=== PATIENT | female | born 1995 | race Caucasian/White ===

== ENCOUNTER 2024-09-27 15:18 | Outpatient (CLI) | payer OTHER, SELFPAY ==
--- NOTE | ~2024-09-27 | CT_ITS ---
EXAMINATION: CT elbow RT wo con DATE: 09/27/2024 15:36 INDICATION: Closed fracture of the right elbow with routine healing TECHNIQUE: High resolution computed tomography (CT) of the right elbow was performed without intraven ous contrast. Additional sagittal and coronal reconstructions were performed. Automated exposure cont rol and iterative reconstruction technique were employed. The dose-length product was 134.61 mGy-cm. COMPARISON: None FINDINGS: Radiocapitellar hemiarthroplasty with minimal lucency surrounding the stem of the radial head implant which remains within normal limits. No fracture identified. There is there some is heterotopic ossif ication thin irregular lucency extending between the regions of nearly bridging heterotopic ossificat ion between the proximal radius and ulna at the level of the radial neck distal to the proximal radio ulnar joint space. There is additional heterotopic ossification along the nonarticular medial margin of the medial femoral condyle at the region of the ulnar collateral ligament complex suggesting seque la of chronic sprain. There are lucent likely suture anchors at both the medial and lateral femoral c ondyles likely for repair of the radial and ulnar collateral ligament tears. 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 No elbow joint effusion. IMPRESSION: 1. Postoperative change including the radiocapitellar hemiarthroplasty with radial head implant and l ucent likely suture anchor tracks at the medial and lateral humeral condyle suggesting prior radial a nd ulnar collateral ligament repairs. Correlate with surgical history. 2. 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 Reviewed, dictated and finalized at location A. IMPRESSION: 1. Postoperative change including the radiocapitellar hemiarthroplasty with rad ial head implant and lucent likely suture anchor tracks at the medial and later al humeral condyle suggesting prior radial and ulnar collateral ligament repair s. Correlate with surgical history. 2. Nearly bridging heterotopic ossification extending between the proximal radi us and ulna at the level of the radial neck which likely contributes to the rep orted inability to rotate the arm.
== END 2024-09-27 15:19 | disposition home or self-care (01) ==
LOC: MICIMG 15:19
DX: S42.401A Unspecified fracture of lower end of right humerus, initial encounter for closed fracture (principal); Z96.621 Presence of right artificial elbow joint
CPT/HCPCS: 73200

== ENCOUNTER 2024-10-06 08:01 | Outpatient (CLI) | payer OTHER, SELFPAY ==
--- NOTE | ~2024-10-06 | MR_ITS ---
EXAMINATION: MR elbow RT wo con DATE: 10/06/2024 10:07 INDICATION: Closed fracture of right elbow with routine healing. TECHNIQUE: Magnetic resonance imaging (MRI) of the right elbow was performed without intravenous cont rast. COMPARISON: Right elbow CT 09/27/2024 FINDINGS: Osseous/other: There is a prosthesis of distal radius. Artifact obscures surrounding structures. Alignment is normal . No acute fracture. There is moderate osteoarthritis of ulnohumeral joint. There is heterotopic ossi fication distal to medial humeral epicondyle. Tendons: The biceps tendon and brachialis tendon are normal. The common extensor tendon is obscured by artifac t. The common flexor tendon is normal. Ligaments: There is degeneration of ulnar collateral ligament without well-defined tear. Cubital tunnel: The ulnar nerve is normal. Fluid: There is no elbow joint effusion. IMPRESSION: 1. Prosthesis of distal radius. 2. Moderate osteoarthritis of ulnohumeral joint. Reviewed, dictated and finalized at location A. CAL CENTER DIRECTOR
== END 2024-10-06 08:02 | disposition home or self-care (01) ==
DX: S52.501D Unspecified fracture of the lower end of right radius, subsequent encounter for closed fracture with routine healing (principal); M19.021 Primary osteoarthritis, right elbow; Z96.698 Presence of other orthopedic joint implants; X58.XXXD Exposure to other specified factors, subsequent encounter
CPT/HCPCS: 73221

== ENCOUNTER 2025-10-13 13:36 | Outpatient (CLI) | payer OTHER, SELFPAY ==
--- NOTE | ~2025-10-13 | US_ITS ---
EXAM(S): US OB <=14 wk fetus w TV HISTORY: Spotting 1st trimester. Dating. COMPARISON: None. FINDINGS: There is an intrauterine gestational sac. Measurements obtained suggest this would be compatible with a gestation of 6 weeks and 1 day of age. A yolk sac is seen. A pole is NOT seen at this time. Additionally, there is a tiny fluid collection or fluid-filled mass surrounded by echogenic tissue adjacent to the gestational sac. It is uncertain what this represents. It could be a second gestational sac with a vanishing twin phenomenon. A cystic structure is seen in the right ovary with a maximum dimension of 2.0 cm. This is likely the corpus luteum cyst. The maternal left ovary is not seen, which is not unusual. There is a minimal amount of free pelvic fluid, thought to be physiologic in quantity. IMPRESSION: Intrauterine gestational sac. The second fluid collection has an appearance suggesting that it is surrounded by endometrium. It may represent something like a vanishing twin. Heterotopic pregnancies are not excluded, but those are very rare. Follow-up beta hCG levels and follow-up scanning as indicated are recommended. Reviewed, dictated and finalized at location A. KROOM SELECTOR IMPRESSION: Intrauterine gestational sac. The second fluid collection has an appearance sug gesting that it is surrounded by endometrium. It may represent something like a vanishing twin. Heterotopic pregnancies are not excluded, but those are very r are. Follow-up beta hCG levels and follow-up scanning as indicated are recommen ded.
== END 2025-10-13 13:37 | disposition home or self-care (01) ==
LOC: GOSHIMG 13:38
PROVIDERS: PCP Obstetrics & Gynecology Gynecology; Visit Provider Obstetrics & Gynecology Gynecology
DX: O26.851 Spotting complicating pregnancy, first trimester (principal); Z3A.00 Weeks of gestation of pregnancy not specified
CPT/HCPCS: 76801; 76817

== ENCOUNTER 2025-10-23 08:52 | Outpatient (CLI) | payer OTHER, SELFPAY ==
--- NOTE | ~2025-10-23 | US_ITS ---
EXAMINATION: US OB transvaginal, 10/23/2025 9:01 MAIL DISTRIBUTOR HISTORY: Spotting 1st trimester Comparison: None Technique: Haque-scale and color Doppler images were obtained. Findings: Uterus is anteverted measuring 10.3 x 5.9 x 7.1 cm. There is a gestational sac identified with a pole corresponding to 7 weeks and 2 days, cardiac heart rate 137 There is a second sac identified, there is no pole or yolk sac demonstrated Right ovary 4 x 2.6 x 3.4 cm, left ovary 3.5 x 1.3 x 2.4 cm. No adnexal mass, normal flow. IMPRESSION: 1. Single live intrauterine detailed above. There is a second probable empty gestational sac. Follow-up is recommended to assess. Reviewed, dictated and finalized at location P. DISTRIBUTOR IMPRESSION: 1. Single live intrauterine detailed above. There is a second probabl e empty gestational sac. Follow-up is recommended to assess.
== END 2025-10-23 08:53 | disposition home or self-care (01) ==
LOC: MICIMG 08:52
PROVIDERS: PCP Obstetrics & Gynecology Gynecology; Visit Provider Obstetrics & Gynecology Gynecology
DX: O26.851 Spotting complicating pregnancy, first trimester (principal); Z3A.00 Weeks of gestation of pregnancy not specified
CPT/HCPCS: 76817

== ENCOUNTER 2025-10-31 10:28 | Outpatient (CLI) | payer OTHER, SELFPAY ==
--- NOTE | ~2025-10-31 | US_ITS ---
EXAMINATION: US OB <= 14 weeks fetus DATE: 10/31/2025 10:55 INDICATION: Vaginal spotting TECHNIQUE: Real-time transabdominal obstetric ultrasound. FINDINGS: Comparison to multiple prior studies sequentially, with oldest reviewed study dated 06/12/2025. There is an intrauterine gestational sac measuring 1.06 cm corresponding to 5 week 6 day gestation. [place]-rump length measures 1.87 cm corresponding to 8 week 3 day gestation. heart rate 183 BPM. There is a second sac without evidence for pole or heart motions. Right ovary within normal limits measuring 3.8 x 2 x 2.7 cm. Left ovary is not visualized. IMPRESSION: 1. SL IUP with an EGA of 8 weeks, 3 days (EDC by current ultrasound of 06/09/2026). 2: Small cystic structure adjacent to the main gestational sac may represent possible empty gestational sac or subchorionic hemorrhage. Recommend follow-up as clinically warranted. Reviewed, dictated and finalized at location I. DEVELOPER DESIGNER IMPRESSION: 1. SL IUP with an EGA of 8 weeks, 3 days (EDC by current ultrasound of ). 2: Small cystic structure adjacent to the main gestational sac may represent p ossible empty gestational sac or subchorionic hemorrhage. Recommend follow-up a s clinically warranted.
== END 2025-10-31 10:29 | disposition home or self-care (01) ==
LOC: MICIMG 10:28
PROVIDERS: PCP Obstetrics & Gynecology Gynecology; Visit Provider Obstetrics & Gynecology Gynecology
DX: O26.851 Spotting complicating pregnancy, first trimester (principal); Z3A.08 8 weeks gestation of pregnancy
CPT/HCPCS: 76801

== ENCOUNTER 2025-11-15 09:56 | Outpatient (CLI) | payer OTHER, SELFPAY ==
--- NOTE | ~2025-11-15 | US_ITS ---
EXAMINATION: US OB <= 14 weeks fetus DATE: 11/15/2025 10:27 INDICATION: Subchorionic hematoma TECHNIQUE: Real-time pelvic ultrasound utilizing both a transvaginal and transabdominal probe was performed. The interpreting radiologist was not present for the study. COMPARISON: 10/31/2025 and 10/23/2025 FINDINGS: The uterus measures 15.1 x 8.9 x 9.9 cm. There is an intrauterine gestational sac. A yolk sac and pole are identified. The crown rump length measures 4.3 cm, which is concordant with the previously estimated gestational age of 10 weeks and 4 days based upon earliest crown-rump length measurement on ultrasound dated 10/23/2025. heart motion is identified measuring 163 beats per minute (bpm) by M-mode Doppler. There are couple anechoic fluid collections peripheral to the gestational sac, one measuring 1.9 x 1.6 x 0.8 cm and the second measuring 2.3 x 1.3 x 0.6 cm most likely representing small subchronic hematomas although differential would include additional empty gestational sacs. The right ovary measures 3.3 x 3.1 x 2.9 cm. The left ovary measures 3.1 x 2.9 x 1.5 cm. And 1.8 cm anechoic right ovarian likely corpus luteum cyst. Vascular flow identified in both ovaries on color Doppler. There is no free fluid in the pelvis. IMPRESSION: 1. Single living fetus with heart rate of 163 bpm. 2. [place]-rump length of 4.3 cm which is concordant within range of measurement error of the previously estimated gestational age by ultrasound of 10 weeks 4 day(s) with ultrasound estimated date of delivery (TORY) of 06/09/2026 based upon ultrasound performed on 10/23/2025. 3. Couple small anechoic likely subchorionic hematomas along side the gestational sac. Reviewed, dictated and finalized at location A. ING SHOW PRODUCER IMPRESSION: 1. Single living fetus with heart rate of 163 bpm. 2. [place]-rump length of 4.3 cm which is concordant within range of measurement error of the previously estimated gestational age by ultrasound of 10 weeks 4 d ay(s) with ultrasound estimated date of delivery (TORY) of 06/09/2026 based upon ultrasound performed on 10/23/2025. 3. Couple small anechoic likely subchorionic hematomas along side the gestation al sac.
== END 2025-11-15 09:57 | disposition home or self-care (01) ==
LOC: MICIMG 09:56
PROVIDERS: PCP Obstetrics & Gynecology Gynecology; Visit Provider Obstetrics & Gynecology Gynecology
DX: O36.8910 Maternal care for other specified fetal problems, first trimester, not applicable or unspecified (principal); Z3A.00 Weeks of gestation of pregnancy not specified
CPT/HCPCS: 76801